=== PATIENT | male | born 1965 | race Two or more races ===

== ENCOUNTER 2021-07-07 17:23 | Emergency (ER) | payer OTHER ==
[~2021-07-07] VITALS: Ht 188 cm; Wt 111.1 kg
[2021-07-07] MEDS ORDERED: NORVASC2.5 M1 (17:45)
[2021-07-07] MEDS ORDERED: GLUMETZA500 MG (17:45)
[2021-07-07] MEDS ORDERED: GLIMEPIRIDE1 MG (17:46)
[2021-07-07] MEDS ORDERED: ULTRACET PO (19:35)
== END 2021-07-07 21:43 | disposition home or self-care (01) ==
LOC: ER 17:23
DX: S52.572A Other intraarticular fracture of lower end of left radius, initial encounter for closed fracture (principal); W18.39XA Other fall on same level, initial encounter; Y93.89 Activity, other specified; Y92.89 Other specified places as the place of occurrence of the external cause; Y99.8 Other external cause status